=== PATIENT | male | born 1965 | race Caucasian/White ===

== ENCOUNTER 2017-07-26 22:10 | Emergency (ER) | payer OTHER, BC ==
[2017-07-27] MEDS ORDERED: IBUPROFEN 800 MG TABLET PO ONE (00:49)
[2017-07-27] MEDS ORDERED: CYCLOBENZAPRINE HCL 10 MG TABLET PO ONE (00:49)
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
[2017-07-27 01:09] VITALS: BP 111/71
== END 2017-07-27 01:09 | disposition home or self-care (01) ==
LOC: ER 22:10
DX: R51 Headache (principal); R29.898 Other symptoms and signs involving the musculoskeletal system; V43.52XA Car driver injured in collision with other type car in traffic accident, initial encounter
CPT/HCPCS: 99283